=== PATIENT | female | born 1985 | race African-American/Black ===

== ENCOUNTER 2017-04-25 22:06 | Inpatient (IN) | payer OTHER ==
[2017-04-25 22:12] VITALS: BMI 45.4
[2017-04-26] MEDS ORDERED: OXYCODONE/APAP 5/325MG COMBO TABLET PO ONE (00:37)
--- NOTE | 2017-04-26 00:47 | PDOC ---
History of Present Illness - History of Present Illness Initial Comments: 04/26/17 01:02 Patient is a 31 year old female with significant medical hx of recent (04/21/17) who is presenting to the ED complaining of increasing bilateral lower extremity edema and pain for the past several days. Yesterday the patient was discharged from [facility] after delivery via six days ago. The patient complains of increasing swelling to her lower extremities bilaterally with shooting pain radiating up and down her legs, specifically left calf pain. The patient also complains of pleuritic, midsternal, non- radiating chest pain that worsens with inspiration but not associated with any shortness of breath. She endorses an episode of tingling to her left upper extremity as well while driving earlier today. Denies any past history of blood clots including DVTs or PEs. Denies any fever, chills, abdominal pain, nausea, vomiting, lightheadedness, syncope, dizziness, or diaphoresis. Surgical Hx: , cholecystectomy <Maria Fernanda Fernandes - Last Filed: 04/26/17 01:02> - General History Source: Patient Exam Limitations: No Limitations <Bro Rucker - Last Filed: 04/26/17 02:29> <Ynes Powell - Last Filed: 04/26/17 06:42> - General Chief Complaint: Pain, Acute Stated Complaint: CHEST PAIN/SWOLLEN LEGS/LT ARM NUMB Time Seen by Provider: 04/26/17 00:28 Past History <Maria Fernanda Fernandes - Last Filed: 04/26/17 01:02> - Surgical History Cholecystectomy: Yes - Reproductive History (#): 5 Para: 2 - Psycho/Social/Smoking Cessation Hx Suicidal Ideation: No Smoking History: Never smoked <Bro Rucker - Last Filed: 04/26/17 02:29> <Ynes Powell - Last Filed: 04/26/17 06:42> - Past Medical History Allergies/Adverse Reactions: Allergies Allergy/AdvReac Type Severity Reaction Status Date / Time codeine Allergy Verified 04/25/17 22:09 Home Medications: Ambulatory Orders NK [No Known Home Medication] 08/30/16 Review of Systems - Review of Systems Comments:: 04/26/17 01:04 GENERAL/CONSTITUTIONAL: No fever or chills. No weakness. HEAD, EYES, EARS, NOSE AND THROAT: No change in vision. No ear pain or discharge. No sore throat. CARDIOVASCULAR: Chest pain. No shortness of breath. RESPIRATORY: No cough, wheezing, or hemoptysis. GASTROINTESTINAL: No nausea, vomiting, diarrhea or constipation. GENITOURINARY: No dysuria, frequency, or change in urination. MUSCULOSKELETAL: Lower extremity swelling bilaterally, lower extremity pain, left calf pain. Back pain. No neck pain. ENDOCRINE: No increased thirst. No abnormal weight change. SKIN: No rash NEUROLOGIC: Left arm tingling. No headache, vertigo, loss of consciousness, or change in strength. <Maria Fernanda Fernandes - Last Filed: 04/26/17 01:02> *Physical Exam - Vital Signs Last Vital Signs Temp Pulse Resp BP Pulse Ox 98.4 F 74 18 146/87 98 04/25/17 22:09 04/25/17 22:09 04/25/17 22:09 04/25/17 22:09 04/25/17 22:09 - Physical Exam Comments: 04/26/17 01:06 GENERAL: Awake, alert, and fully oriented, in no acute distress HEAD: No signs of trauma EYES: PERRLA, EOMI, sclera anicteric, conjunctiva clear ENT: Auricles normal inspection, hearing grossly normal, nares patent, oropharynx clear without exudates. Moist mucosa NECK: Normal ROM, supple, no lymphadenopathy, JVD, or masses LUNGS: Breath sounds equal, clear to auscultation bilaterally. No wheezes, and no crackles HEART: Regular rate and rhythm, normal S1 and S2, no murmurs, rubs or gallops ABDOMEN: clean, dry, and intact. Soft, nontender, normoactive bowel sounds. No guarding, no rebound. No masses EXTREMITIES: Normal range of motion, no edema. No clubbing or cyanosis. No cords, erythema, or tenderness NEUROLOGICAL: Cranial nerves II through XII grossly intact. Normal speech, normal gait SKIN: Warm, Dry, normal turgor, no rashes or lesions noted. HEMATOLOGIC/LYMPHATIC: No anemia, easy bleeding, or history of blood clots. ALLERGIC/IMMUNOLOGIC: No hives or skin allergy. <Maria Fernanda Fernandes - Last Filed: 04/26/17 01:02> - Vital Signs Last Vital Signs Temp Pulse Resp BP Pulse Ox 98.4 F 74 18 146/87 98 04/25/17 22:09 04/25/17 22:09 04/25/17 22:09 04/25/17 22:09 04/25/17 22:09 <Bro Rucker - Last Filed: 04/26/17 02:29> - Vital Signs Last Vital Signs Temp Pulse Resp BP Pulse Ox 98.4 F 74 18 146/87 98 04/25/17 22:09 04/25/17 22:09 04/25/17 22:09 04/25/17 22:09 04/25/17 22:09 <Ynes Powell - Last Filed: 04/26/17 06:42> Heart Score/ECG Review #1 ECG reviewed & interpreted by me at: 22:30 04/26/17 00:51 NSR 62, low voltages (likely secondary to obesity), no std/rodney, normal axis, normal intervals, QTC 393 msec <Bro Rucker - Last Filed: 04/26/17 02:29> ED Treatment Course - LABORATORY CBC & Chemistry Diagram: 04/26/17 00:47 04/26/17 00:47 <Maria Fernanda Fernandes - Last Filed: 04/26/17 01:02> - LABORATORY CBC & Chemistry Diagram: 04/26/17 00:47 04/26/17 00:47 - RADIOLOGY Radiology Studies Ordered: Category Date Time Status CHEST CTA [CT] Stat CT Scan 04/26/17 00:37 Ordered <Bro Rucker - Last Filed: 04/26/17 02:29> - LABORATORY CBC & Chemistry Diagram: 04/26/17 00:47 04/26/17 00:47 - ADDITIONAL ORDERS Additional order review: Laboratory Results 04/26/17 04/26/17 00:47 00:47 INR 0.94 PTT (Actin FS) 39.8 H Sodium 143 Potassium 3.7 Chloride 107 Carbon Dioxide 26 Anion Gap 10 BUN 4 L D Creatinine 0.7 Creat Clearance w eGFR > 60 Random Glucose 91 Calcium 8.4 L Total Bilirubin 0.4 D AST 39 H D ALT 53 Alkaline Phosphatase 135 H D Creatine Kinase 129 Troponin I < 0.02 B-Natriuretic Peptide 861.61 H Total Protein 6.0 L Albumin 2.4 L D 04/26/17 00:47 RBC 3.84 MCV 84.7 MCHC 34.2 RDW 15.5 MPV 7.8 Neutrophils % 53.1 Lymphocytes % 34.9 Monocytes % 9.4 Eosinophils % 1.9 Basophils % 0.7 - Medications Given in the ED: ED Medications Discontinued Medications Generic Name Dose Route Start Last Admin Trade Name Freq PRN Reason Stop Dose Admin Oxycodone/Acetaminophen 1 combo 04/26/17 00:37 04/26/17 01:30 Percocet 5/325 - PO 04/26/17 00:38 1 combo ONCE ONE Administration <Ynes Powell - Last Filed: 04/26/17 06:42> Medical Decision Making - Medical Decision Making 04/26/17 00:40 A portion of this note was documented by scribe services under my direction. I have reviewed the details of the note, within reason, and agree with the documentation with the following case summary and management plan written by me. Patient treated in the ED. Nursing notes are reviewed and incorporated into the medical decision-making. Vital signs reviewed. Peripheral IV access obtained by the nurse, laboratory studies are drawn and sent, reviewed and interpreted by myself. Vital Signs Temp Pulse Resp BP Pulse Ox 98.4 F 74 18 146/87 98 04/25/17 22:09 04/25/17 22:09 04/25/17 22:09 04/25/17 22:09 04/25/17 22:09 31-year-old female with no past mental history presents with chest pain or lower extremity edema. The patient had recently delivered via on comp located at [facility]. She was discharged yesterday. Since then, patient is medical by increasing lower extremity edema and left calf pain. She is today she has noted some pleuritic midsternal chest pain. She felt some tingling in her left upper extremity. Denies cardiac or pulmonary or blood clot history. We'll rule out DVTs, pulmonary embolisms. We'll obtain a BNP to rule out peripartum cardiomyopathy and congestive heart failure. We'll send troponin. EKG. CAT scan of the chest to rule out PE. Reassess. 04/26/17 02:10 CBC, BMP 04/26/17 00:47 04/26/17 00:47 CMP Sodium 143 mmol/L (136-145) 04/26/17 00:47 Potassium 3.7 mmol/L (3.5-5.1) 04/26/17 00:47 Chloride 107 mmol/L (98-107) 04/26/17 00:47 Carbon Dioxide 26 mmol/L (21-32) 04/26/17 00:47 Anion Gap 10 (8-16) 04/26/17 00:47 BUN 4 mg/dL (7-18) L D 04/26/17 00:47 Creatinine 0.7 mg/dL (0.55-1.02) 04/26/17 00:47 Creat Clearance w eGFR > 60 (>60) 04/26/17 00:47 Random Glucose 91 mg/dL (74-106) 04/26/17 00:47 Calcium 8.4 mg/dL (8.5-10.1) L 04/26/17 00:47 Total Bilirubin 0.4 mg/dL (0.2-1.0) D 04/26/17 00:47 AST 39 U/L (15-37) H D 04/26/17 00:47 ALT 53 U/L (12-78) 04/26/17 00:47 Alkaline Phosphatase 135 U/L (45-117) H D 04/26/17 00:47 Creatine Kinase 129 IU/L (26-192) 04/26/17 00:47 Troponin I < 0.02 ng/ml (0.00-0.05) 04/26/17 00:47 B-Natriuretic Peptide 861.61 pg/ml (5-125) H 04/26/17 00:47 Total Protein 6.0 g/dl (6.4-8.2) L 04/26/17 00:47 Albumin 2.4 g/dl (3.4-5.0) L D 04/26/17 00:47 Patient's BNP is 860. This is concerning for peripartum cardiomyopathy. CT scan pending. However, patient should be admitted for an echocardiogram. Duplex demonstrates NO DVT Case signed out to oncoming attending Dr. Powell for further management and disposition. <Bro Rucker - Last Filed: 04/26/17 02:29> - Medical Decision Making 04/26/17 06:17 Patient Name: Kristen Musa THIS IS A PRELIMINARYREPORT FROM IMAGING SUPERVISOR [employer]PE[employer] EXAM: CT angiogram of the chest IMAGES: 869 INDICATION: Pleuritic chest pain status post childbirth DATE OF SERVICE: 2017-04-26 04:44:04.0 COMPARISON: none FINDINGS: There is no PE or dissection. Heart size is normal. The trachea and bronchi are patent. There is no pleural or pericardial effusion. Vague groundglass opacities in the right upper lobe and right middle lobe could represent pneumonia or inflammatory pneumonitis. No fractures identified. The upper abdominal structures are normal. IMPRESSION: Vague right upper lobe and right middle lobe groundglass opacities may represent pneumonia or an inflammatory pneumonitis. THIS DOCUMENT HAS BEEN ELECTRONICALLY SIGNED 04/26/17 06:18 Pt will be admitted to the hospitalist for pneumonitis, SOB, . <Ynes Powell - Last Filed: 04/26/17 06:42> *DC/Admit/Observation/Transfer - Attestations Scribe Attestion: 04/26/17 01:06 Documentation prepared by Maria Fernanda Fernandes, acting as chief medical technologist for Bro Rucker MD. <Maria Fernanda Fernandes - Last Filed: 04/26/17 01:02> <Bro Rucker - Last Filed: 04/26/17 02:29> - Discharge Dispostion Admit: Yes <Ynes Powell - Last Filed: 04/26/17 06:42> Diagnosis at time of Disposition: state, Pneumonitis, cardiomyopathy - Discharge Dispostion Condition at time of disposition: Guarded
[2017-04-26 00:55] LABS: BASOPHIL 0.7 % (0-2.0); EOSINOPHIL 1.9 % (0-4.5); MCHC 34.2 g/dl (32.0-36.0); MEAN CELL VOLUME 84.7 fl (80-96); MEAN PLT VOLUME 7.8 fl (7.5-11.1); NEUTROPHILS 53.1 % (42.8-82.8); PLATELET COUNT 341 K/MM3 (134-434); RDW 15.5 % (11.6-15.6); WHITE BLOOD COUNT 9.8 K/mm3 (4.0-10.0)
[2017-04-26 01:21] LABS: ALBUMIN 2.4 g/dl (3.4-5.0); ANION GAP 10 (8-16); BILIRUBIN,TOTAL 0.4 mg/dL (0.2-1.0); CALCIUM 8.4 mg/dL (8.5-10.1); CO2 26 mmol/L (21-32); COCKROFT - GAULT 225.5475; CREATININE 0.7 mg/dL (0.55-1.02); GLUCOSE,RANDOM 91 mg/dL (74-106); SGOT/AST 39 U/L (15-37); SGPT/ALT 53 U/L (12-78)
[2017-04-26 01:24] LABS: ALK PHOS 135 U/L (45-117); INR 0.94 (0.82-1.09); PROTHROMBIN TIME (PATIENT) 10.3 SEC (9.98-11.88); TROPONIN I < 0.02 ng/ml (0.00-0.05)
[2017-04-26 01:26] LABS: ACTIVATED PTT 39.8 SECONDS (26.9-34.4)
[2017-04-26] MEDS ORDERED: OXYCODONE/APAP 5/325MG COMBO TABLET ONE (01:34)
--- NOTE | 2017-04-26 09:57 | HP ---
CHIEF COMPLAINT: Chest pain and dyspnea for two days PCP: at [facility], name not recalled HISTORY OF PRESENT ILLNESS: 31 y/o woman, , 7 days post , C- section at [facility] at term. Patient went home on 04/24/17 with some leg edema, which had been mild from 38 weeks of . Yesterday she developed increasing leg edema, sharp calf pains, left greater than right, and mid sternal chest pain, radiating to the back. She has been dyspneic, with exertional limitation due to dyspnea. Patient denies all infectious symptoms. No fever, no cough, no sore throat. No recent viral illness. No hx of DVT or lung disease, no hx of kidney disease. ER course was notable for: (1) BNP elevated (2) CTA negatvie for PE, with some minor ground glass opacities in the lungs (3) Venous doppler study of the legs negative for DVT Recent Travel: None PAST MEDICAL HISTORY: 2001 PAST SURGICAL HISTORY: cholecystectomy 2007 2013, 2016 Social History: Smoking: never Alcohol: no Drugs: none Family History: negative Allergies: codeine Allergy (Verified 04/25/17 22:09) HOME MEDICATIONS: vitamins only Home Medications Medication Instructions Recorded NK [No Known Home Medication] 08/30/16 REVIEW OF SYSTEMS CONSTITUTIONAL: + general weakness Absent: fever, chills, diaphoresis, malaise, loss of appetite, weight change HEENT: Absent: rhinorrhea, nasal congestion, throat pain, throat swelling, difficulty swallowing, mouth swelling, ear pain, eye pain, visual changes CARDIOVASCULAR: + chest pain, peripheral edema, lightheadedness Absent: syncope, palpitations, irregular heart rate RESPIRATORY: + dyspnea, pleuritic pain radiating to the back Absent: cough, orthopnea, wheezing, stridor, hemoptysis GASTROINTESTINAL: Absent: abdominal pain, abdominal distension, nausea, vomiting, diarrhea, constipation, melena, hematochezia GENITOURINARY: + post lochia, wound pain slowly resolving Absent: dysuria, frequency, urgency, hesitancy, hematuria, flank pain, genital pain MUSCULOSKELETAL: + calf cramping, leg swelling feet up to knees Absent: myalgia, arthralgia, joint swelling, back pain, neck pain SKIN: Absent: rash, itching, pallor HEMATOLOGIC/IMMUNOLOGIC: Absent: easy bleeding, easy bruising, lymphadenopathy, frequent infections ENDOCRINE: Absent: unexplained weight gain, unexplained weight loss, heat intolerance, cold intolerance NEUROLOGIC: Absent: headache, focal weakness or paresthesias, dizziness, unsteady gait, seizure, mental status changes, bladder or bowel incontinence PSYCHIATRIC: Absent: anxiety, depression, suicidal or homicidal ideation, hallucinations. PHYSICAL EXAMINATION Vital Signs - 24 hr 04/26/17 04/26/17 07:16 08:23 Temperature 98.4 F 99.2 F Pulse Rate 64 Pulse Rate [ 72 Apical] Respiratory 18 18 Rate Blood Pressure 126/76 Blood Pressure 125/70 [Right Arm] O2 Sat by Pulse 93 L 90 L Oximetry (%) GENERAL: Awake, alert, and fully oriented, in no acute distress. HEAD: Normal with no signs of trauma. EYES: Pupils equal, round and reactive to light, extraocular movements intact, sclera anicteric, conjunctiva clear. No lid lag. EARS, NOSE, THROAT: Ears normal, nares patent, oropharynx clear without exudates. Moist mucous membranes. NECK: Normal range of motion, supple without lymphadenopathy, JVD, or masses. LUNGS: Breath sounds equal, clear to auscultation bilaterally. No wheezes, and no crackles. No accessory muscle use. No splinting on inspiration. HEART: Regular rate and rhythm, normal S1 and S2 without murmur, rub or gallop. ABDOMEN: Soft, nontender, not distended, normoactive bowel sounds, no guarding, no rebound, no masses. No hepatomegaly or splenomegaly. Healing wound without infection. MUSCULOSKELETAL: Normal range of motion at all joints. No bony deformities or tenderness. No CVA tenderness. UPPER EXTREMITIES: 2+ pulses, warm, well-perfused. No cyanosis. No clubbing. No peripheral edema. LOWER EXTREMITIES: 2+ pulses, warm, well-perfused. No calf tenderness. Positive peripheral edema, pitting, in the feet and lower legs, 2+ feet, 1+ pretibial, negative above the knees. NEUROLOGICAL: Cranial nerves II-XII intact. Normal speech. Normal gait, but walks slowly due to dyspnea. PSYCHIATRIC: Cooperative. Good eye contact. Appropriate mood and affect. SKIN: Warm, dry, normal turgor, no rashes or lesions noted, normal capillary refill. Laboratory Tests 04/26/17 04/26/17 04/26/17 00:47 00:47 00:47 WBC 9.8 RBC 3.84 Hgb 11.1 D Hct 32.5 MCV 84.7 MCHC 34.2 RDW 15.5 Plt Count 341 MPV 7.8 Neutrophils % 53.1 Lymphocytes % 34.9 Monocytes % 9.4 Eosinophils % 1.9 Basophils % 0.7 INR 0.94 PTT (Actin FS) 39.8 H Sodium 143 Potassium 3.7 Chloride 107 Carbon Dioxide 26 Anion Gap 10 BUN 4 L D Creatinine 0.7 Creat Clearance w eGFR > 60 Random Glucose 91 Calcium 8.4 L Total Bilirubin 0.4 D AST 39 H D ALT 53 Alkaline Phosphatase 135 H D Creatine Kinase 129 Troponin I < 0.02 B-Natriuretic Peptide 861.61 H Total Protein 6.0 L Albumin 2.4 L D CTA with no PE, minor small ground glass opacities, official reading pending. Duplex doppler negative for DVT, official reading pending. ASSESSMENT/PLAN: Patient is one week post , presenting with chest pain, leg edema, dyspnea on exertion. On my bedside check with the pulse oximeter, she had sats standing at rest of 83 to 84%. With ambulation she was able to walk slowly, with sats of 89% post exertion. This will be rechecked as the sats in the ED were normal. ABG to be done. Lungs are clear, heart sounds are normal. Legs with pitting edema. Labs are notable for low albumin, down from prior result of 3.4 to 2.4. Urine for protein is pending. Concern for proteinuria leading to hypoalbuminemia. Mild post anemia with Hb of 11.1 is expected post . BNP is elevated to 861. Concern for possible renal disease with loss of protein. Low concern for post pre-eclampsia given normal BP. Concern for possible post myocarditis/cardiomyopathy with chest pain, leg edema and dyspnea. Normal troponin can occur in some patients with myocarditis. Hypoxemia is unexplained given no PE on CTA and minimal ground glass opacities on chest CT which do not appear significant enough to cause hypoxemia. Plan: UA and urine protein/creatinine ABG repeat pulse oximetry with a different machine cardiology consult stat echocardiogram to assess LV function nasal O2 at 2 liters DVT prophylaxis with lovenox Problem List - Problem (1) Hypoxemia Code(s): R09.02 - HYPOXEMIA (2) Hypoalbuminemia Code(s): E88.09 - OTH DISORDERS OF PLASMA-PROTEIN METABOLISM, NEC (3) Chest pain Code(s): R07.9 - CHEST PAIN, UNSPECIFIED Qualifiers: Chest pain type: chest pain on breathing Qualified Code(s): R07.1 - Chest pain on breathing Visit type - Emergency Visit Emergency Visit: Yes ED Registration Date: 04/26/17 Care time: The patient presented to the Emergency Department on the above date and was hospitalized for further evaluation of their emergent condition. - New Patient This patient is new to me today: Yes Date on this admission: 04/26/17 - Critical Care Critical Care patient: No
--- NOTE | 2017-04-26 10:31 | CON.CARD ---
Consult Consult Specialty:: Cardiology Referred by:: Hospitalist Medicine Reason for Consultation:: Chest pain and dyspnea - History of Present Illness Chief Complaint: Chest pain and dyspnea History of Present Illness: PCP: at [facility], name not recalled HISTORY OF PRESENT ILLNESS: 31 y/o woman, , 7 days post , C- section at 04/21/2017, presented with increasing leg edema, sharp calf pains, left greater than right, pleuritic mid sternal nonradiating chest pain, radiating to the back. She has been dyspneic, with exertional limitation due to dyspnea, hypoxic, denies family of personal h/o thrombophilia. ER course was notable for: (1) BNP elevated (2) CTA negatvie for PE, with some minor ground glass opacities in the lungs (3) Venous doppler study of the legs negative for DVT Recent Travel: None PAST MEDICAL HISTORY: 2001 PAST SURGICAL HISTORY: cholecystectomy 2006 2013, 2016 Social History: Smoking: never Alcohol: no Drugs: none Family History: negative Allergies: codeine Allergy (Verified 04/25/17 22:09) HOME MEDICATIONS: vitamins only - History Source History Provided By: Patient Limitations to Obtaining History: No Limitations - Past Medical History ...: No - Alcohol/Substance Use Hx Alcohol Use: No - Smoking History Smoking history: Never smoked Home Medications - Allergies Allergies/Adverse Reactions: Allergies Allergy/AdvReac Type Severity Reaction Status Date / Time codeine Allergy Verified 04/25/17 22:09 - Home Medications Home Medications: Ambulatory Orders NK [No Known Home Medication] 08/30/16 Review of Systems - Review of Systems Cardiovascular: reports: Chest Pain, Shortness of Breath Vital Signs: Vital Signs Temperature 99.2 F 04/26/17 08:23 Pulse Rate 64 04/26/17 08:23 Respiratory Rate 18 04/26/17 08:23 Blood Pressure 126/76 04/26/17 08:23 O2 Sat by Pulse Oximetry (%) 90 L 04/26/17 08:23 Constitutional: Yes: No Distress, Calm Neck: Yes: Supple Respiratory: Yes: Regular, Diminished, On Nasal O2 Gastrointestinal: Yes: Normal Bowel Sounds, Soft, Abdomen, Obese Cardiovascular: Yes: Regular Rate and Rhythm JVD: No Carotid Bruit: No Heart Sounds: Yes: S1, S2 Edema: Yes Edema: LLE: 1+, RLE: 1+ - Other Data Labs, Other Data: INR, PTT INR 0.94 (0.82-1.09) 04/26/17 00:47 NSR @ 62 low volts Imaging - Results Cat Scan: Report Reviewed (Patient Name: Kristen Musa THIS IS A PRELIMINARYREPORT FROM IMAGING PASTRY ASSISTANT EXAM: CT angiogram of the chest IMAGES : 869 INDICATION: Pleuritic chest pain status post childbirth DATE OF SERVICE : 2017-04-26 04:44:04.0 COMPARISON: none FINDINGS: There is no PE or dissection. Heart size is normal. The trachea and bronchi are patent. There is no pleural or pericardial effusion. Vague groundglass opacities in the right upper lobe and right middle lobe could represent pneumonia or inflammatory pneumonitis. No fractures identified. The upper abdominal structures are normal. IMPRESSION: Vague right upper lobe and right middle lobe groundglass opacities may represent pneumonia or an inflammatory pneumonitis. THIS DOCUMENT HAS BEEN ELECTRONICALLY SIGNED) Problem List - Problems (1) Chest pain Code(s): R07.9 - CHEST PAIN, UNSPECIFIED Qualifiers: Chest pain type: chest pain on breathing Qualified Code(s): R07.1 - Chest pain on breathing (2) Hypoalbuminemia Code(s): E88.09 - OTH DISORDERS OF PLASMA-PROTEIN METABOLISM, NEC (3) Hypoxemia Code(s): R09.02 - HYPOXEMIA (4) Pneumonitis Code(s): J18.9 - PNEUMONIA, UNSPECIFIED ORGANISM (5) state Code(s): Z39.2 - ENCOUNTER FOR ROUTINE FOLLOW-UP Assessment/Plan CTA with no PE, minor small ground glass opacities, official reading pending. Duplex doppler negative for DVT, official reading pending. 1. Acute hypoxic respiratory failure referable to 2. Post- r/o peripartum cardiomyopathy vs inflammatory pneumonitis, unlikely PNA, ruled out for PE 3. Hypoalbuminemia P:1. F/u echocardiogram to assess ventricular and valve fxn, UA and urine protein/creatinine, check ABG 2. BD and O2 as needed, consider steroid trial 3. DVT prophylaxis 4. Thank you for consultative opportunity
[2017-04-26] MEDS: ENOXAPARIN NA (PORCINE) 40 MG/0.4 ML DISP.SYRIN SQ SCH (12:09)
[2017-04-26 12:16] LABS: ARTERIAL BLD GAS O2 SATURATION 91.9 % (90-98.9); ARTERIAL BLOOD GAS BASE EXCESS 0.2 meq/l (-2-2); ARTERIAL BLOOD GAS HCO3 23.1 meq/L (22-26); ARTERIAL BLOOD GAS pH 7.45 (7.35-7.45)
[2017-04-26 12:17] LABS: ALLENS TEST POSITIVE; ART PUNCT SITE RIGHT RADIAL; LPM/O2% 2L; PT. ON O2? YES; TYPE OF O2 NASAL
[2017-04-26 12:19] LABS: ARTERIAL BLOOD GAS PO2 66.6 mmHg (80-100)
[2017-04-26] MEDS: oxyCODONE HCL 5 MG TABLET PO PRN ×2 (12:19→17:14)
[2017-04-26] MEDS: ACETAMINOPHEN 325 MG TABLET (FP) PO PRN ×2 (12:20→17:15)
[2017-04-26 16:03] LABS: URINE CREATININE 46.9 mg/dL (20-320)
--- NOTE | 2017-04-26 17:09 | PN ---
Physical Exam: Follow up note: OBJECTIVE: Vital Signs Period Temp Pulse Resp BP Sys/Armando Pulse Ox Last 24 Hr 98.4 F-99.2 F 64-72 18-18 125-142/70-85 90-93 Laboratory Results - last 24 hr 04/26/17 04/26/17 09:25 12:05 Puncture Site Right radial ABG pH 7.45 ABG pCO2 at Pt Temp 33.4 L ABG pO2 at Pt Temp 66.6 L ABG HCO3 23.1 ABG O2 Sat (Measured) 91.9 ABG O2 Content 17.5 ABG Base Excess 0.2 Shubham Test Positive O2 Delivery Device Nasal Oxygen Flow Rate 2l PEEP 0.0 U Random Total Protein 27 H Urine Creatinine 46.9 Protein/Creatinin Ratio 0.6 Active Medications Generic Name Dose Route Start Last Admin Trade Name Freq PRN Reason Stop Dose Admin Acetaminophen 650 mg 04/26/17 09:22 04/26/17 12:20 Tylenol - PO 650 mg Q4H PRN Administration FEVER OR PAIN Enoxaparin Sodium 40 mg 04/26/17 10:00 04/26/17 12:09 Lovenox - SQ 40 mg DAILY ELIAS Administration Oxycodone HCl 5 mg 04/26/17 09:22 04/26/17 12:19 Roxicodone - PO 5 mg Q4H PRN Administration PAIN Echo preliminary with normal ejection fraction, mild pulmonary hypertension. Urine spot protein creatinine ration 0.6 consistent with mild proteinuria. ASSESSMENT/PLAN: The normal LVEF on echo with mild pulmonary hypertension, and the ABG with an Aa gradient, pO2 on 2 liters nasal oxygen at 67 and there are some minor ground glass infiltrates on the chest CT. I suspect there could be an inflammatory process in the lungs related to , perhaps a subclinical amniotic fluid embolism, without the typical fulminant course, but rather a minor inflammatory process with mild gas exchange abnormalities. If this is the case , I would expect the patient to get better with time and observation. If she does not improve, then the question of further diagnostic testing and possible therapeutic options will need to be raised. Problem List - Problems (1) Hypoxemia Code(s): R09.02 - HYPOXEMIA (2) Hypoalbuminemia Code(s): E88.09 - OTH DISORDERS OF PLASMA-PROTEIN METABOLISM, NEC (3) Chest pain Code(s): R07.9 - CHEST PAIN, UNSPECIFIED Qualifiers: Chest pain type: chest pain on breathing Qualified Code(s): R07.1 - Chest pain on breathing Visit type - Emergency Visit Emergency Visit: Yes ED Registration Date: 04/26/17 Care time: The patient presented to the Emergency Department on the above date and was hospitalized for further evaluation of their emergent condition. - New Patient This patient is new to me today: Yes Date on this admission: 04/26/17 - Critical Care Critical Care patient: No - Discharge Referral Referred to [facility] Med P.C.: No
[2017-04-27 00:50] LABS: URINE APPEARANCE CLEAR; URINE BILIRUBIN NEGATIVE (NEGATIVE); URINE COLOR RED; URINE GLUCOSE (UA) NEGATIVE (NEGATIVE); URINE KETONE NEGATIVE (NEGATIVE); URINE NITRITE NEGATIVE (NEGATIVE); URINE UROBILINOGEN 2.0 E.U/dl E.U./dl (0.2-1.0)
[2017-04-27 00:51] LABS: URINE BLOOD 3+ (NEGATIVE); URINE LEUK ESTERASE 3+ (NEGATIVE); URINE PROTEIN 1+ (NEGATIVE)
[2017-04-27 00:56] LABS: URINE RBC 91 /hpf (0-3); URINE WBC 83 /hpf (3-5)
[2017-04-27 06:54] LABS: MCH 28.8 pg (25.7-33.7); MCHC 34.1 g/dl (32.0-36.0); MEAN CELL VOLUME 84.5 fl (80-96); PLATELET COUNT 380 K/MM3 (134-434); WHITE BLOOD COUNT 9.7 K/mm3 (4.0-10.0)
[2017-04-27 07:38] LABS: ALBUMIN 2.3 g/dl (3.4-5.0); ANION GAP 12 (8-16); BILIRUBIN,TOTAL 0.3 mg/dL (0.2-1.0); CALCIUM 8.2 mg/dL (8.5-10.1); CO2 23 mmol/L (21-32); CREATININE 0.8 mg/dL (0.55-1.02); GLUCOSE,RANDOM 82 mg/dL (74-106); MAGNESIUM 1.9 mg/dL (1.8-2.4); PHOSPHOROUS 4.6 mg/dL (2.5-4.9); SGOT/AST 22 U/L (15-37); SGPT/ALT 38 U/L (12-78); TOT PROT 5.5 g/dl (6.4-8.2)
[2017-04-27 07:41] LABS: ALK PHOS 117 U/L (45-117); TROPONIN I < 0.02 ng/ml (0.00-0.05)
[2017-04-27] MEDS: ENOXAPARIN NA (PORCINE) 40 MG/0.4 ML DISP.SYRIN SQ SCH (09:10)
[2017-04-27] MEDS ORDERED: CEFTRIAXONE 1 GM in DEXTROSE 5%-WATER - 50 ML IVPB SCH (11:45)
--- NOTE | 2017-04-27 12:26 | PN ---
Progress Note, Physician History of Present Illness: Reports nonproductive cough, chest pain, dyspnea resolved, denies wheeze. - Current Medication List Current Medications: Active Medications Acetaminophen (Tylenol -) 650 mg PO Q4H PRN PRN Reason: FEVER OR PAIN Last Admin: 04/26/17 17:15 Dose: 650 mg Enoxaparin Sodium (Lovenox -) 40 mg SQ DAILY ELIAS Last Admin: 04/27/17 09:10 Dose: 40 mg Ceftriaxone Sodium (Rocephin 1gm Ivpb (Pre-Docked)) 50 mls @ 100 mls/hr IVPB DAILY ELIAS Oxycodone HCl (Roxicodone -) 5 mg PO Q4H PRN PRN Reason: PAIN Last Admin: 04/26/17 17:14 Dose: 5 mg - Objective Vital Signs: Vital Signs Temperature 99.2 F 04/27/17 09:11 Pulse Rate 84 04/27/17 09:11 Respiratory Rate 20 04/27/17 09:11 Blood Pressure 125/85 04/27/17 09:11 O2 Sat by Pulse Oximetry (%) 99 04/27/17 09:10 Constitutional: Yes: No Distress, Calm Neck: Yes: Supple Cardiovascular: Yes: Regular Rate and Rhythm Respiratory: Yes: Regular, Diminished, On Nasal O2 Gastrointestinal: Yes: Normal Bowel Sounds, Soft, Abdomen, Obese Edema: No Labs: CBC, BMP 04/27/17 06:00 04/27/17 06:00 INR, PTT INR 0.94 (0.82-1.09) 04/26/17 00:47 - ....Imaging EKG: Report Reviewed (Tele: ST) Problem List - Problems (1) Chest pain Code(s): R07.9 - CHEST PAIN, UNSPECIFIED Qualifiers: Chest pain type: chest pain on breathing Qualified Code(s): R07.1 - Chest pain on breathing (2) Hypoalbuminemia Code(s): E88.09 - OTH DISORDERS OF PLASMA-PROTEIN METABOLISM, NEC (3) Hypoxemia Code(s): R09.02 - HYPOXEMIA (4) Pneumonitis Code(s): J18.9 - PNEUMONIA, UNSPECIFIED ORGANISM (5) state Code(s): Z39.2 - ENCOUNTER FOR ROUTINE FOLLOW-UP Assessment/Plan CTA with no PE, minor small ground glass opacities, official reading pending. Duplex doppler negative for DVT, official reading pending. 04/26/2017 Echo: Normal LV and RV size and fxn, mild MR, TR, mild pulm HTN 1. Resolving acute hypoxemic respiratory failure referable to 2. Possible inflammatory pneumonitis, unlikely PNA, ruled out for PE and peripartum cardiomyopathy 3. Hypoalbuminemia P:1. Encourage ambulation, clinically improved, d/c planning.
[2017-04-27] MEDS: CEFTRIAXONE 50 ML IVPB SCH (12:54)
--- NOTE | 2017-04-27 16:15 | PN ---
Physical Exam: SUBJECTIVE: Patient seen and examined. She feels better today, states her pressure to her legs is less. With ambulation she is 88-90% on RA, sitting she is 90% The pain in her LLE is less as well as her chest pain, intermittently in bed she has some knee pain. She is no longer dyspnic OBJECTIVE: Vital Signs Period Temp Pulse Resp BP Sys/Armando Pulse Ox Last 24 Hr 97.8 F-99.2 F 71-89 16-20 122-141/50-90 99-99 PE Neuro: alert, awake, cn 2-12intact Pulm: CTAB CV: s1 s2 rrr no mrg Abd: s nt nd + bs Ext: b/l +1 pitting edema, pedal edema less, legs are warm Laboratory Results - last 24 hr 04/26/17 04/27/17 04/27/17 09:25 00:30 06:00 WBC 9.7 RBC 3.96 Hgb 11.4 Hct 33.4 MCV 84.5 MCHC 34.1 RDW 15.0 Plt Count 380 MPV 8.0 Sodium Potassium Chloride Carbon Dioxide Anion Gap BUN Creatinine Creat Clearance w eGFR Random Glucose Hemoglobin A1c % Calcium Phosphorus Magnesium Total Bilirubin AST ALT Alkaline Phosphatase Troponin I B-Natriuretic Peptide Total Protein Albumin Urine Color Red Urine Appearance Clear Urine pH 7.0 D Ur Specific [place] 1.010 Urine Protein 1+ H Urine Glucose (UA) Negative Urine Ketones Negative Urine Blood 3+ H Urine Nitrite Negative Urine Bilirubin Negative Urine Urobilinogen 2.0 e.u/dl H Ur Leukocyte Esterase 3+ H Urine RBC 91 Urine WBC 83 Ur Epithelial Cells Moderate U Random Total Protein 27 H Urine Creatinine 46.9 Protein/Creatinin Ratio 0.6 04/27/17 04/27/17 06:00 06:00 WBC RBC Hgb Hct MCV MCHC RDW Plt Count MPV Sodium 143 Potassium 4.1 Chloride 108 H Carbon Dioxide 23 Anion Gap 12 BUN 7 D Creatinine 0.8 Creat Clearance w eGFR > 60 Random Glucose 82 Hemoglobin A1c % 5.4 Calcium 8.2 L Phosphorus 4.6 Magnesium 1.9 Total Bilirubin 0.3 D AST 22 D ALT 38 D Alkaline Phosphatase 117 Troponin I < 0.02 B-Natriuretic Peptide 760.09 H Total Protein 5.5 L Albumin 2.3 L Urine Color Urine Appearance Urine pH Ur Specific [place] Urine Protein Urine Glucose (UA) Urine Ketones Urine Blood Urine Nitrite Urine Bilirubin Urine Urobilinogen Ur Leukocyte Esterase Urine RBC Urine WBC Ur Epithelial Cells U Random Total Protein Urine Creatinine Protein/Creatinin Ratio Active Medications Generic Name Dose Route Start Last Admin Trade Name Caseq PRN Reason Stop Dose Admin Acetaminophen 650 mg 04/26/17 09:22 04/26/17 17:15 Tylenol - PO 650 mg Q4H PRN Administration FEVER OR PAIN Enoxaparin Sodium 40 mg 04/26/17 10:00 04/27/17 09:10 Lovenox - SQ 40 mg DAILY ELIAS Administration Ceftriaxone Sodium 50 mls @ 100 mls/hr 04/27/17 12:08 04/27/17 12:54 Rocephin 1gm Ivpb (Pre-Docked) IVPB 100 mls/hr DAILY ELIAS Administration Oxycodone HCl 5 mg 04/26/17 09:22 04/26/17 17:14 Roxicodone - PO 5 mg Q4H PRN Administration PAIN Imaging: CTA: minimal ground glass opacities, ruled out PE ECHO: normal LVEF, mild PulmHTN, r/o cardiomyopathy Assessment: 31 year old female , currently post , s.p at [facility] at term 04/21, discharged on 04/21. Presented with worsening lower extremity edema present since 38 weeks of . Admitted with progressing edema, sharp calf pains, left greater than right, and mid sternal chest pain, radiating to the back. 1. Hypoxemia - Likely due to Subclinical amniotic fluid embolism, pneumonitis - Hypoxia is improving, however still below normal and requiring oxygen, spo2 90 % - Continue supplemental o2 2. UTI - Send urine cx - Start Ceftrixone 1gm daily 3. Hypoalbuminemia - With proteinuria, however can be due to , does not report pre eclampsia - With regards to reverse a/g ratio, also can be due to , possibly kidney disease, will check TSH - If worsens will send spep/ipep - Will trend 4. Proteinuria - Will repeat UA prior to discharge - See above 4. Chest pain - r/o [place] trops negative, BNP down trending 5. Post auto diuresis - Monitor BP Visit type - Emergency Visit Emergency Visit: Yes ED Registration Date: 04/26/17 Care time: The patient presented to the Emergency Department on the above date and was hospitalized for further evaluation of their emergent condition. - New Patient This patient is new to me today: No - Critical Care Critical Care patient: No
[2017-04-27 17:38] LABS: ARTERIAL BLOOD GAS BASE EXCESS -0.2 meq/l (-2-2); ARTERIAL BLOOD GAS HCO3 23.1 meq/L (22-26); ARTERIAL BLOOD GAS pH 7.42 (7.35-7.45)
[2017-04-27 17:39] LABS: ALLENS TEST POSITIVE; ART PUNCT SITE LEFT RADIAL; LPM/O2% 3L; PT. ON O2? YES; TYPE OF O2 NASAL
[2017-04-27] MEDS: ACETAMINOPHEN 325 MG TABLET (FP) PO PRN (17:53)
--- NOTE | 2017-04-27 23:39 | CON.OBG ---
Consult Consult Specialty:: obgyn - History of Present Illness History of Present Illness: pt had a c/s a week ago. pt came with swelling in her lower legs. Pt also had some sob.Pt seen ambulating, no sob. 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
--- NOTE | 2017-04-28 06:36 | HOSP ---
Physical Examination Vital Signs: Vital Signs Temperature 99.4 F 04/28/17 06:00 Pulse Rate 74 04/28/17 06:00 Respiratory Rate 20 04/28/17 06:00 Blood Pressure 113/78 04/28/17 06:00 O2 Sat by Pulse Oximetry (%) 96 04/27/17 21:00 Cardiovascular: Yes: Regular Rate and Rhythm. No: Murmur, Rub Respiratory: Yes: Regular, CTA Bilaterally, On Nasal O2 Labs: CBC, BMP 04/27/17 06:00 04/27/17 06:00 Hospitalist Encounter Assessment: Patient remains afebrile overnight. CXR done and as read by me- Ground glass opacities in right upper and middle lobe. No evidence of PNA. No need to start azithromycin.
[2017-04-28 07:34] LABS: ALBUMIN 2.4 g/dl (3.4-5.0); ANION GAP 8 (8-16); CALCIUM 8.4 mg/dL (8.5-10.1); CO2 24 mmol/L (21-32); GLUCOSE,RANDOM 66 mg/dL (74-106); SGOT/AST 21 U/L (15-37); SGPT/ALT 32 U/L (12-78)
[2017-04-28 07:45] LABS: ALK PHOS 113 U/L (45-117); BILIRUBIN,TOTAL 0.4 mg/dL (0.2-1.0); CREATININE 0.6 mg/dL (0.55-1.02); THYROID STIMULATING HORMONE 2.55 uIU/ml (0.358-3.74); TOT PROT 5.7 g/dl (6.4-8.2)
[2017-04-28] MEDS: ACETAMINOPHEN 325 MG TABLET (FP) PO PRN ×2 (08:30→13:57)
--- NOTE | 2017-04-28 09:01 | EKG ---
Test Reason : Blood Pressure : / mmHG Vent. Rate : 071 BPM Atrial Rate : 071 BPM P-R Int : 144 ms QRS Dur : 084 ms QT Int : 390 ms P-R-T Axes : 061 062 034 degrees QTc Int : 423 ms NORMAL SINUS RHYTHM NORMAL ECG NO PREVIOUS ECGS AVAILABLE Confirmed by KAIT HINES MD ([id number]) on 04/28/2017 9:01:03 AM Referred By: Shiva SALDIVAR Confirmed By:KAIT HINES MD
[2017-04-28] MEDS: CEFTRIAXONE 50 ML IVPB SCH (09:10)
[2017-04-28] MEDS: ENOXAPARIN NA (PORCINE) 40 MG/0.4 ML DISP.SYRIN SQ SCH (09:12)
--- NOTE | 2017-04-28 12:35 | PN ---
Progress Note, Physician History of Present Illness: Nonproductive cough, chest pain, dyspnea resolved, denies wheeze. - Current Medication List Current Medications: Active Medications Acetaminophen (Tylenol -) 650 mg PO Q4H PRN PRN Reason: FEVER OR PAIN Last Admin: 04/28/17 08:30 Dose: 650 mg Enoxaparin Sodium (Lovenox -) 40 mg SQ DAILY ELIAS Last Admin: 04/28/17 09:12 Dose: 40 mg Ceftriaxone Sodium (Rocephin 1gm Ivpb (Pre-Docked)) 50 mls @ 100 mls/hr IVPB DAILY ELIAS Last Admin: 04/28/17 09:10 Dose: 100 mls/hr Oxycodone HCl (Roxicodone -) 5 mg PO Q4H PRN PRN Reason: PAIN Last Admin: 04/26/17 17:14 Dose: 5 mg - Objective Vital Signs: Vital Signs Temperature 98 F 04/28/17 09:19 Pulse Rate 76 04/28/17 10:00 Respiratory Rate 20 04/28/17 09:19 Blood Pressure 142/89 04/28/17 09:19 O2 Sat by Pulse Oximetry (%) 90 L 04/28/17 10:00 Constitutional: Yes: No Distress, Calm Neck: Yes: Supple Cardiovascular: Yes: Regular Rate and Rhythm Respiratory: Yes: Regular, Diminished, On Nasal O2 Gastrointestinal: Yes: Normal Bowel Sounds, Soft, Abdomen, Obese Edema: No Labs: CBC, BMP 04/27/17 06:00 04/28/17 06:00 INR, PTT INR 0.94 (0.82-1.09) 04/26/17 00:47 - ....Imaging Chest X-ray: Report Reviewed (NAD) Problem List - Problems (1) Chest pain Code(s): R07.9 - CHEST PAIN, UNSPECIFIED Qualifiers: Chest pain type: chest pain on breathing Qualified Code(s): R07.1 - Chest pain on breathing (2) Hypoalbuminemia Code(s): E88.09 - OTH DISORDERS OF PLASMA-PROTEIN METABOLISM, NEC (3) Hypoxemia Code(s): R09.02 - HYPOXEMIA (4) Pneumonitis Code(s): J18.9 - PNEUMONIA, UNSPECIFIED ORGANISM (5) state Code(s): Z39.2 - ENCOUNTER FOR ROUTINE FOLLOW-UP Assessment/Plan CTA with no PE, minor small ground glass opacities, official reading pending. Duplex doppler negative for DVT, official reading pending. 04/26/2017 Echo: Normal LV and RV size and fxn, mild MR, TR, mild pulm HTN 1. Resolving acute hypoxemic respiratory failure referable to 2. Possible inflammatory pneumonitis, unlikely PNA, ruled out for PE and peripartum cardiomyopathy 3. Hypoalbuminemia P:1. Encourage ambulation, clinically improved, d/c planning.
[2017-04-28 13:38] VITALS: BP 133/88; PULSE 73; TEMP 97.6
[2017-04-28 16:58] LABS: URINE APPEARANCE CLEAR; URINE BILIRUBIN NEGATIVE (NEGATIVE); URINE COLOR STRAW; URINE GLUCOSE (UA) NEGATIVE (NEGATIVE); URINE KETONE NEGATIVE (NEGATIVE); URINE NITRITE NEGATIVE (NEGATIVE); URINE PROTEIN NEGATIVE (NEGATIVE); URINE UROBILINOGEN NEGATIVE E.U./dl (0.2-1.0)
[2017-04-28 17:04] LABS: URINE BLOOD 3+ (NEGATIVE); URINE LEUK ESTERASE TRACE (NEGATIVE)
[2017-04-28 17:05] LABS: URINE BACTERIA RARE /hpf (NONE SEEN); URINE RBC 4 /hpf (0-3); URINE WBC 1 /hpf (3-5)
--- NOTE | 2017-04-28 18:10 | DS ---
Physical Exam: SUBJECTIVE: Patient seen and examined. She is much better. Denies cp, SOB, she is active in the room, no difficulties ambulating, spo2 at rest is 96% and 96% while ambulating. OBJECTIVE: Vital Signs Period Temp Pulse Resp BP Sys/Armando Pulse Ox Last 24 Hr 97.6 F-99.4 F 67-76 18-20 113-142/75-89 90-96 PE Neuro: alert, awake, cn 2-12intact Pulm: CTAB, no tachypnea, sob CV: s1 s2 rrr no mrg Abd: s nt nd + bs Ext: b/l +1 pitting edema, pedal edema less Laboratory Results - last 24 hr 04/28/17 04/28/17 06:00 15:45 Sodium 140 Potassium 3.8 Chloride 108 H Carbon Dioxide 24 Anion Gap 8 BUN 4 L D Creatinine 0.6 D Creat Clearance w eGFR > 60 Random Glucose 66 L Calcium 8.4 L Total Bilirubin 0.4 D AST 21 ALT 32 Alkaline Phosphatase 113 Total Protein 5.7 L Albumin 2.4 L TSH 2.55 Urine Color Straw Urine Appearance Clear Urine pH 7.0 Urine Protein Negative Urine Glucose (UA) Negative Urine Ketones Negative Urine Blood 3+ H Urine Nitrite Negative Urine Bilirubin Negative Urine Urobilinogen Negative Ur Leukocyte Esterase Trace H D Urine RBC 4 Urine WBC 1 Ur Epithelial Cells Rare Urine Bacteria Rare HOSPITAL COURSE: Date of Admission:04/26/17 Date of Discharge: 04/28/17 Minutes to complete discharge: 35 Discharge Summary Reason For Visit: STATE, PNUEMONITIS Current Active Problems Chest pain (Acute) Hypoalbuminemia (Acute) Hypoxemia (Acute) Pneumonitis (Acute) cardiomyopathy (Acute) state (Acute) Hospital Course: Initial Hospital Course: Briefly, this 31 year old female, , 7 days post , at [facility] at term. Patient went home on 04/24/17 with some leg edema, which had been mild from 38 weeks of . On 04/25 developed increasing leg edema, sharp calf pains, left greater than right, and mid sternal chest pain , radiating to the back. She was dyspneic, with exertional limitation due to dyspnea. Imaging: CTA: mild RU and RLL ground glass opacities, ruled out PE, mild increase thymic tissue may be on the basis of normal residual thymic tissue, less likely thymic lesion ECHO: normal LVEF, mild PulmHTN, r/o cardiomyopathy Subsequent Hospital Course/Progress Note/Discharge Summary: Assessment: 31 year old female , currently post , s.p at [facility] at term 04/21, discharged on 04/21. Presented with worsening lower extremity edema present since 38 weeks of . Admitted with progressing edema, sharp calf pains, left greater than right, and mid sternal chest pain, radiating to the back. 1. Hypoxemia - Likely due to Subclinical amniotic fluid embolism, pneumonitis - Resolved, no longer requiring supplemental o2 2. UTI - Will follow final urine cx - Ceftriaxone 2 days, home with ceftin 500mg BID x3 days 3. Hypoalbuminemia, reverse a/g ratio - With proteinuria, however can be due to , does not report pre eclampsia - With regards to reverse a/g ratio, also can be due to , possibly kidney disease, will check TSH - If worsens will send spep/ipep 4. Proteinuria - Repeat UA without protein, however albumin still low - See above 5. Chest pain - r/o [place] trops negative, BNP down trending 6. Post auto diuresis - Monitor BP Dispo: - Home with PCP appt made with Dr. SlaterOfficial 05/01/2017 @12:45pm - Spoke with patient gave information and address, she will attend - Additionally, referred her to pulmonary for follow up CT in 3-6 months - If hypoalbuminemia dose not improve, nephrology referral enclosed, pt aware of this and PCP has information to follow -- Pt cell phone [phone] Condition: Stable - Instructions Diet, Activity, Other Instructions: Please return to the ED for any new, persistent, or worsening symptoms. Follow up with your OB later this week to re check your urine to see if you have cleared your UTI and no further protein in urine Follow up with you primary doctor to follow your albumin levels and protein levels, the clinic on [address] If worsening referral enclosed for kidney doctor Continue antibiotics for 3 more days as directed Referrals: Grady Park MD [Staff Physician] - Vernell Cesar MD [Staff Physician] - Jason Mays MD [Staff Physician] - Len Kenyon MD [Staff Physician] - Anders Gonsalez MD, MD [Staff Physician] - Disposition: HOME - Home Medications Comprehensive Discharge Medication List: Ambulatory Orders Oxycodone HCl/Acetaminophen [Percocet 5-325 mg Tablet] 1 tab PO Q4H PRN Cefuroxime Axetil [Ceftin -] 500 mg PO BID #6 tablet 04/28/17 This patient is new to me today: No Emergency Visit: Yes ED Registration Date: 04/26/17 Care time: The patient presented to the Emergency Department on the above date and was hospitalized for further evaluation of their emergent condition. Critical Care patient: No - Discharge Referral Referred to [facility] Med P.C.: No
--- NOTE | 2017-04-29 14:20 | EKG ---
Test Reason : Blood Pressure : / mmHG Vent. Rate : 062 BPM Atrial Rate : 062 BPM P-R Int : 152 ms QRS Dur : 076 ms QT Int : 388 ms P-R-T Axes : 017 057 027 degrees QTc Int : 393 ms NORMAL SINUS RHYTHM LOW VOLTAGE QRS BORDERLINE ECG NO PREVIOUS ECGS AVAILABLE Confirmed by BRANDAN VALERIO MD ([id number]) on 04/29/2017 2:19:43 PM Referred By: Confirmed By:BRANDAN VALERIO MD
== END 2017-04-28 17:50 | disposition home or self-care (01) | DRG 561 ==
LOC: JER 22:06 → JERBED 04-26 06:42 → J4S 04-26 08:45
PROVIDERS: ADMIT Internal Medicine; ATTEND Nurse Practitioner Acute Care
PROC: 3E0F7GC Introduction of Other Therapeutic Substance into Respiratory Tract, Via Natural or Artificial Opening (ICD-10-PCS; principal; 2017-04-26)
DX: O90.89 Other complications of the puerperium, not elsewhere classified (principal); R60.0 Localized edema; O88 Obstetric embolism; J96.01 Acute respiratory failure with hypoxia; O90.81 Anemia of the puerperium; R07.1 Chest pain on breathing; E88.09 Other disorders of plasma-protein metabolism, not elsewhere classified; I27.2 Other secondary pulmonary hypertension
CPT/HCPCS: 36415; 36600; 71020-TC; 71275-TC; 80053; 81003; 81015; 82550; 82570; 82803; 83036; 83735; 83880; 84100; 84156; 84443; 84484; 85025; 85027; 85610; 85730; 87040; 87086; 93005; 93010; 93306-TC; 93970-TC; 99285-25

== ENCOUNTER 2018-07-06 21:09 | Emergency (ER) | payer OTHER ==
[2018-07-06 21:13] VITALS: BMI 38.4
--- NOTE | 2018-07-06 23:35 | PDOC ---
History of Present Illness - General Chief Complaint: Cold Symptoms Stated Complaint: PAIN Time Seen by Provider: 07/06/18 22:59 - History of Present Illness Initial Comments: 07/06/18 23:29 33 year old who presents with 3 days of fevers, chills, leg muscle pain, headaches, decreased appetite and productive cough. She notes a decrease in appetite and lower pelvic pain for 2-3 days but notes that she is on her menses currently. The patient denies shortness of breath, chest pain, burning with urination or diarrhea or constipation. The patient took one Excedrin 3 days ago without relief. PMHX: none PSHX: C-sections, cholecystectomy Meds; none Allergies: codeine Tob: none Etoh: none Rec drugs; none Past History - Past Medical History Allergies/Adverse Reactions: Allergies Allergy/AdvReac Type Severity Reaction Status Date / Time codeine Allergy Verified 07/06/18 21:13 Home Medications: Ambulatory Orders Oxycodone HCl/Acetaminophen [Percocet 5-325 mg Tablet] 1 tab PO Q4H PRN Cefuroxime Axetil [Ceftin -] 500 mg PO BID #6 tablet 04/28/17 COPD: No - Surgical History Cholecystectomy: Yes - Reproductive History (#): 5 Para: 2 Therapeutic (s) & number: No - Suicide/Smoking/Psychosocial Hx Smoking History: Never smoked Hx Alcohol Use: No Review of Systems - Review of Systems Able to Perform ROS?: Yes Is the patient limited Greenlandic proficient: No Constitutional: Yes: Chills, Diaphoresis, Fever, Loss of Appetite HEENTM: No: Tinnitus, Throat Pain Respiratory: Yes: Cough. No: Shortness of Breath Cardiac (ROS): No: Chest Pain ABD/GI: No: Constipated, Diarrhea, Nausea, Vomiting : No: Burning, Dysuria, Hematuria Neurological: Yes: Headache. No: Numbness, Paresthesia, Tingling *Physical Exam - Vital Signs Last Vital Signs Temp Pulse Resp BP Pulse Ox 101.4 F H 122 H 18 118/72 96 07/06/18 21:10 07/06/18 21:10 07/06/18 21:10 07/06/18 21:10 07/06/18 21:10 - Physical Exam Comments: 07/07/18 02:46 GENERAL: Awake, alert, and fully oriented, in no acute distress HEAD: No signs of trauma, normocephalic, atraumatic EYES: EOMI, sclera anicteric, conjunctiva clear ENT: Moist mucosa NECK: Normal ROM, supple, no lymphadenopathy or masses LUNGS: No distress, speaks full sentences, clear to auscultation bilaterally HEART: Regular rate and rhythm, normal S1 and S2, no murmurs, rubs or gallops, peripheral pulses normal and equal bilaterally. ABDOMEN: Soft, nontender, normoactive bowel sounds. No guarding, no rebound. No masses EXTREMITIES : Normal inspection, Normal range of motion, no edema. No clubbing or cyanosis. NEUROLOGICAL:Normal speech, normal gait, no focal sensorimotor deficits SKIN: Warm, Dry, normal turgor, no rashes or lesions noted Medical Decision Making - Medical Decision Making 07/07/18 02:48 33 year old who presents with 3 days of fevers, chills, leg muscle pain, headaches, decreased appetite and productive cough. The patient's symptoms and history are concerning for viral URI vs UTI vs atypical PNA vs Influenza A/B. Labs will be drawn to evaluate. Patient started on fluids and Tylenol. Patient reassessed. stable *DC/Admit/Observation/Transfer Diagnosis at time of Disposition: Cold, Flu-like symptoms - Discharge Dispostion Disposition: HOME Condition at time of disposition: Stable Decision to Admit order: No - Referrals Referrals: [facility] [place] [Provider Group] - Patient Instructions Printed Discharge Instructions: DI for Viral Upper Respiratory Infection -- Adult Additional Instructions: You were seen in the ED for cold and flu symptoms. In the ED you were evaluated with labwork and treated symptomatically. You do not appear to require immediate hospitalization. You are advised to follow up with your primary care physician in 1-2 weeks. Return to the ED immediately if you experience worsening fevers, headaches, nausea, vomiting, diarrhea, constipation, shortness of breath, chest pain or abdominal pain. - Post Discharge Activity
[2018-07-06] MEDS ORDERED: ACETAMINOPHEN 500 MG TABLET (FP) PO ONE ×2 (23:44→23:47)
[2018-07-06] MEDS ORDERED: SODIUM CHLORIDE 1,000 ML IV SCH (23:45)
[2018-07-06] MEDS ORDERED: IBUPROFEN 400 MG TABLET (FP) PO ONE (23:46)
--- NOTE | 2018-07-07 00:12 | PDOC ---
Attending Attestation - Resident Resident Name: HarvinderyonatanStephanie - ED Attending Attestation I have performed the following: I have examined & evaluated the patient, The case was reviewed & discussed with the resident, I agree w/resident's findings & plan, Exceptions are as noted - Medical Decision Making 07/07/18 00:12 33yoF no PMHx w/ viral syndrome. - UA/UPT - tylenol/iburpofen - counseled regarding home care. - DC <Keyana Cerna - Last Filed: 07/07/18 00:11> - HPI HPI: 07/07/18 01:04 The patient is a 33 year old female with no past medical history who presents to the emergency department for evaluation of fever, chills, and body aches. The patient reports a 3 day history of fever with tmax of 101, chills, body aches, and a mild sore throat. She reports associated symptoms of nausea without vomiting, headache, nasal congestion, shakes, and productive cough with white sputum. Patient reports lower pelvic pain, but notes she is currently menstruating. The patient states slept in her bed from 10am and stayed until 7pm yesterday and felt no alleviation to the aforementioned symptoms. She reports taking Excedrin 3 days ago with no relief to her symptoms. The patient denies abnormalities with her menses, back pain, chest pain, shortness of breath, and dizziness. Denies vomiting, diarrhea, constipation, urinary urgency/frequency, dysuria, and hematuria. Allergies: Codeine Social History: No reported alcohol, cigarette, or drug use. Surgical History: . Cholecystectomy. - Physicial Exam PE: NAD EOMI, REGINALD MMM, OP WNL, TMs WNL b/l NCAT, no midline cervical tenderness RRR, nl s1/s2, no m/r/g CTABL, no w/r/r Soft, NTND No edema, WWP, no rash Neuro grossly intact, gait WNL, moving all 4 A&O x 3, mood/affect WNL. <Zoie Styles - Last Filed: 07/07/18 01:06> Attestations - Attestations Documentation prepared by Zoie Styles, acting as emergency medical service coordinator for Keyana Cerna MD. <Zoie Styles - Last Filed: 07/07/18 01:06>
[2018-07-07] MEDS ORDERED: ACETAMINOPHEN 325 MG TABLET (FP) ONE (01:23)
[2018-07-07 01:28] LABS: URINE APPEARANCE CLEAR; URINE BILIRUBIN NEGATIVE (<2.0 mg/dL); URINE COLOR YELLOW; URINE GLUCOSE (UA) NEGATIVE (NEGATIVE); URINE KETONE 1+ (NEGATIVE); URINE LEUK ESTERASE NEGATIVE (NEGATIVE); URINE NITRITE NEGATIVE (NEGATIVE); URINE UROBILINOGEN 4.0 E.U/dl mg/dL (0.2-1.0)
[2018-07-07 01:35] LABS: URINE PROTEIN 2+ (NEGATIVE)
[2018-07-07 01:38] LABS: EPI CELLS RARE /HPF (FEW)
[2018-07-07 03:10] VITALS: TEMP 99.1
[2018-07-07 04:06] VITALS: BP 100/62; PULSE 93
[2018-07-07] MEDS ORDERED: IBUPROFEN 400 MG TABLET (FP) PO ONE (04:07)
== END 2018-07-07 06:00 | disposition home or self-care (01) ==
LOC: JERFT 21:09 → JER 21:09
DX: J11.1 Influenza due to unidentified influenza virus with other respiratory manifestations (principal); J00 Acute nasopharyngitis [common cold]
CPT/HCPCS: 81003; 81015; 84703; 87086; 87804; 99282-25; J7030

== ENCOUNTER 2021-11-21 14:00 | Emergency (ER) | payer BC, OTHER ==
[2021-11-21 14:11] VITALS: BP 146/94; PULSE 119; TEMP 100; BMI 46.2
[2021-11-21] MEDS ORDERED: IBUPROFEN 600 MG TABLET (FP) PO ONE ×2 (17:19→17:23)
== END 2021-11-21 18:20 | disposition home or self-care (01) ==
LOC: JER 14:00
DX: U07.1 COVID-19 (principal)
CPT/HCPCS: 71046-TC-FY; 87804; 99284-25; C9803; U0003; U0005

== ENCOUNTER 2025-05-31 10:17 | Day surgery (SDC) | payer OTHER ==
[2025-05-26 14:21] VITALS: BMI 46.4
[2025-05-31 10:45] VITALS: RESP 18
[2025-05-31 11:27] VITALS: TEMP 97.9
[2025-05-31 12:52] VITALS: BP 110/68; PULSE 86
== END 2025-05-31 12:28 | disposition home or self-care (01) ==
LOC: FASU-ENDO 10:17
PROVIDERS: ATTEND Internal Medicine Gastroenterology
PROC: 0DBL8ZX Excision of Transverse Colon, Via Natural or Artificial Opening Endoscopic, Diagnostic (ICD-10-PCS; 2025-05-31)
PROC: 0DBN8ZX Excision of Sigmoid Colon, Via Natural or Artificial Opening Endoscopic, Diagnostic (ICD-10-PCS; 2025-05-31)
PROC: 0DBP8ZX Excision of Rectum, Via Natural or Artificial Opening Endoscopic, Diagnostic (ICD-10-PCS; 2025-05-31)
PROC: 0DBB8ZX Excision of Ileum, Via Natural or Artificial Opening Endoscopic, Diagnostic (ICD-10-PCS; 2025-05-31)
PROC: 0DBH8ZX Excision of Cecum, Via Natural or Artificial Opening Endoscopic, Diagnostic (ICD-10-PCS; 2025-05-31)
PROC: 0DBK8ZX Excision of Ascending Colon, Via Natural or Artificial Opening Endoscopic, Diagnostic (ICD-10-PCS; principal; 2025-05-31 11:02)
DX: K63.89 Other specified diseases of intestine (principal); D50.9 Iron deficiency anemia, unspecified
CPT/HCPCS: 81025; 88305-TC

== ENCOUNTER 2025-06-14 09:25 | Day surgery (SDC) | payer OTHER ==
[2025-05-31 12:01] VITALS: BMI 46.4
[2025-06-14] MEDS ORDERED: LIDOCAINE VISCOUS 2% ORAL/TOP 15 ML UNIT-DOSE CUP ONE (09:45)
[2025-06-14 10:32] VITALS: BP 136/69; PULSE 93; RESP 16; TEMP 97.2
== END 2025-06-14 10:36 | disposition home or self-care (01) ==
LOC: FASU-ENDO 09:25
PROVIDERS: ATTEND Internal Medicine Gastroenterology
PROC: 0DB68ZX Excision of Stomach, Via Natural or Artificial Opening Endoscopic, Diagnostic (ICD-10-PCS; 2025-06-14)
PROC: 0DB98ZX Excision of Duodenum, Via Natural or Artificial Opening Endoscopic, Diagnostic (ICD-10-PCS; principal; 2025-06-14 09:54)
DX: K20.90 Esophagitis, unspecified without bleeding (principal); K31.89 Other diseases of stomach and duodenum; Z98.84 Bariatric surgery status
CPT/HCPCS: 81025; 88305-TC; 88342-TC